=== PATIENT | male | born 1960 | race Caucasian/White ===

== ENCOUNTER → 2017-08-18 | Outpatient (CLI) | payer BC, OTHER ==
--- NOTE | 2017-08-18 08:21 | Diagnostic Imaging Report ---
PROCEDURE: MRI right joint upper extremity without contrast. TECHNIQUE: Multiplanar, multisequence non contrast-enhanced MRI of the right upper extremity was accomplished. INDICATION: Right shoulder pain, increasing in severity. No prior studies are available for comparison. FINDINGS: The biceps tendon is in a normal location within the bicipital groove. There is some mild thickening and intermediate signal within the biceps tendon, perhaps owing to biceps tendinopathy. There are hypertrophic degenerative changes of the acromioclavicular joint as well. The subscapularis tendon of the rotator cuff appears intact. The supraspinatus and infraspinatus tendons of the rotator cuff appear intact. No tear or retraction is seen. No fluid is seen within the subacromial and subdeltoid bursa. There is a septated cystic mass identified in the spinal glenoid region near the notch. This measures 1.5 cm AP by 2.9 cm transverse by 3.3 cm cephalocaudal. This is most consistent with a ganglion. IMPRESSION: 1. No evidence of rotator cuff tear or retraction. 2. 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 3. Septated cystic mass in the spinal glenoid notch, most consistent with a ganglion. Dictated by: Dictated on workstation # [id number]
== END ==
LOC: RAD 07:03
PROVIDERS: ATTEND Nurse Practitioner Family
DX: M75.21 Bicipital tendinitis, right shoulder (principal); M19.011 Primary osteoarthritis, right shoulder
CPT/HCPCS: 73221

== ENCOUNTER 2022-01-02 05:36 | Outpatient (CLI) | payer OTHER ==
[~2022-01-02] VITALS: Ht 175.3 cm; Wt 127.5 kg
== END 2022-01-02 14:07 | disposition home or self-care (01) ==
LOC: PREOP 05:36
PROVIDERS: ATTEND Surgery
DX: Z01.818 Encounter for other preprocedural examination (principal)

== ENCOUNTER 2022-01-30 05:36 | Outpatient (CLI) | payer OTHER | END 2022-01-31 09:40 | disposition home or self-care (01) | LOC: PREOP 05:36 | PROVIDERS: ATTEND Surgery | DX: Z01.818 Encounter for other preprocedural examination (principal) ==

== ENCOUNTER 2022-02-11 07:57 | Day surgery (SDC) | payer OTHER ==
[~2022-02-11] VITALS: Ht 175.3 cm; Wt 127.5 kg
[2022-02-11 08:10] VITALS: BP 127/90
[2022-02-11] MEDS ORDERED: LACTATED RINGERS 1,000 ML IV STA (08:15)
[2022-02-11] MEDS ORDERED: PROPOFOL INJECTION 50 ML IV ONE (09:15)
--- NOTE | 2022-02-11 09:44 | Progress Note-Post Operative ---
Post-Operative Progess Note Surgeon (s)/Dairy Cattle Farmer (s) Surgeon JOSELINE PEDERSEN DO Dairy Cattle Farmer: none Pre-Operative Diagnosis screening Post-Operative Diagnosis Polyps diverticula int hemorrhoids Procedure & Operative Findings Date of Procedure 02/11/22 Procedure Performed/Findings Colonoscopy with snare polypectomy PROCEDURE NOTE: After informed consent was obtained, the patient was brought to the endoscopy suite, placed in bed in left lateral decubitus position. He was administered IV sedation by the GEAR CUTTING MACHINE OPERATOR who then monitored his vitals the entire time, heart rate, blood pressure and pulse ox. The scope was inserted, pushed all the way to about 140 cm and pushed into the cecum. Took a picture of appendiceal orifice and then found a polyp; took a picture of this and removed with snare polypectomy. On the way had seen diverticula and took a picture of them. Slowly withdrew the scope insufflating to look circumferentially at the abdul starting in the cecum, up the ascending colon to the hepatic flexure, then down the transverse colon to the splenic flexure and into the descending colon. Continued down into the sigmoid and found another polyp here; removed with snare polypectomy. Finally, into the rectal vault and retroflexed the scope. Took a picture of the internal hemorrhoids. The patient tolerated the procedure. He was recovered in endoscopy suite. Recommended for repeat colonoscopy in 5 years. Anesthesia Type IV sedation by GEAR CUTTING MACHINE OPERATOR Estimated Blood Loss Estimated blood loss (mL): scant Specimens/Packing Specimens Removed cecal polyp sigmoid polyp JOSELINE PEDERSEN DO Feb 11, 2022 09:44
[2022-02-11 09:45] VITALS: BP 125/80
--- NOTE | 2022-02-11 09:45 | Endoscopy Discharge Instruct ---
Endo Procedure/Findings Findings 1.: Polyp 2.: Diverticulosis 3.: Internal Hemorrhoids Discharge Instructions - Activity: You might feel a little sleepy until tomorrow. This is due to the medicine you received to relax you. Until tomorrow, you should: NOT drive a car, operate machinery or power tools. NOT drink any alcoholic beverages. NOT make any important decisions or sign importortant papers. Do not return to work until tomorrow, unless otherwise instructed. Resume previous activities tomorrow. Diet: Start by taking liquids. If you tolerate liquids, advance to solid food. 1.: Colonscopy in 5 years Notify Physician - If you experience excessive bleeding, unusual abdominal pain, fever, or chest pain, contact your doctor immediately. JOSELINE PEDERSEN DO Feb 11, 2022 09:45
[2022-02-11 09:54] VITALS: BP 125/80
--- NOTE | 2022-02-11 10:02 | Anesthesia-General Post-Op ---
MAC Patient Condition Mental Status/LOC: Same as Preop Cardiovascular: Satisfactory Nausea/Vomiting: Absent Respiratory: Satisfactory Pain: Controlled Complications: Absent Post Op Complications Complications None Follow Up Care/Instructions Patient Instructions None needed. Anesthesiology Discharge Order Discharge Order Patient is doing well, no complaints, stable vital signs, no apparent adverse anesthesia problems. No complications reported per nursing. ALEX KILPATRICK CRNA Feb 11, 2022 10:02
[2022-02-11 10:25] VITALS: BP 125/80
== END 2022-02-11 10:29 | disposition home or self-care (01) ==
LOC: ENDO 07:57
PROVIDERS: ATTEND Surgery
DX: Z12.11 Encounter for screening for malignant neoplasm of colon (principal); D12.0 Benign neoplasm of cecum; K63.5 Polyp of colon; K57.30 Diverticulosis of large intestine without perforation or abscess without bleeding; K64.8 Other hemorrhoids; N40.0 Benign prostatic hyperplasia without lower urinary tract symptoms; Z28.310 Unvaccinated for COVID-19; E66.01 Morbid (severe) obesity due to excess calories; Z68.41 Body mass index [BMI] 40.0-44.9, adult; Z79.52 Long term (current) use of systemic steroids; Z80.0 Family history of malignant neoplasm of digestive organs
CPT/HCPCS: 88305